=== PATIENT | male | born 1955 | race Caucasian/White ===

== ENCOUNTER 2016-08-12 12:35 | Emergency (ER) | payer BC, OTHER ==
--- NOTE | 2016-08-12 12:45 | ER Document Report ---
ED Medical Screen (RME) - General Stated Complaint: RIGHT LEG AND FOOT PAIN, SWELLING Mode of Arrival: Wheelchair Information source: Patient Notes: Patient presents complaining of right foot pain. Patient states that he hit his splint while at work, patient works at the [employer]. 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 A comprehensive ED assessment and evaluation of the patient, analysis of test results and completion of the medical decision making process will be conducted by additional ED providers. TRAVEL OUTSIDE OF THE [place] IN LAST 30 DAYS: No - Related Data Allergies/Adverse Reactions: No Known Allergies Allergy (Verified 08/12/16 12:41) Physical Exam - Extremities General lower extremity: Tender - Right foot
[2016-08-12] MEDS ORDERED: OXYCODONE-ACETAMINOPHEN 5-325 MG TABLET PO ONE (15:33)
[2016-08-12] MEDS ORDERED: HEPARIN SOD (PORCINE) 1,000 UNIT/ML 10 ML VIAL IV ONE (16:46)
[2016-08-12] MEDS ORDERED: HEPARIN SOD (PORCINE) 1,000 UNIT/ML 10 ML VIAL IV PRN (16:46)
[2016-08-12] MEDS ORDERED: HEPARIN SODIUM,PORCINE/D5W 250 ML IV PRN (16:46)
--- NOTE | 2016-08-12 16:46 | ER Document Report ---
ED General - General Chief Complaint: Foot Injury Stated Complaint: RIGHT LEG AND FOOT PAIN, SWELLING Mode of Arrival: Wheelchair Information source: Patient Notes: 61-year-old male presents with complaints of right foot pain and swelling. Patient states he kicked something about 5 days ago denies any other injuries, TRAVEL OUTSIDE OF THE [place] IN LAST 30 DAYS: No - HPI Onset: Last week Onset/Duration: Persistent Quality of pain: Achy Severity: Mild Pain Level: 1 Associated symptoms: Leg swelling, Other Exacerbated by: Walking Relieved by: Denies Similar symptoms previously: No Recently seen / treated by doctor: No - Related Data Allergies/Adverse Reactions: No Known Allergies Allergy (Verified 08/12/16 12:41) Past Medical History - General Information source: Patient - Social History Smoking Status: Never Smoker Cigarette use (# per day): No Chew tobacco use (# tins/day): No Smoking Education Provided: No Frequency of alcohol use: None Drug Abuse: None Family History: Reviewed & Not Pertinent Patient has suicidal ideation: No Patient has homicidal ideation: No Renal/ Medical History: Denies: Hx Peritoneal Dialysis Review of Systems - Review of Systems Notes: REVIEW OF SYSTEMS: CONSTITUTIONAL : Denies fever, chills, or sweats. Denies recent illness. EENT: Denies eye, ear, throat, or mouth pain or symptoms. Denies nasal or sinus congestion or discharge. Denies throat, tongue, or mouth swelling or difficulty swallowing. CARDIOVASCULAR: Denies chest pain. Denies palpitations or racing or irregular heart beat. Denies ankle edema. RESPIRATORY: Denies cough, cold, or chest congestion. Denies shortness of breath, difficulty breathing, or wheezing. GASTROINTESTINAL: Denies abdominal pain or distention. Denies nausea, vomiting , or diarrhea. Denies blood in vomitus, stools, or per rectum. Denies black, tarry stools. Denies constipation. GENITOURINARY: Denies difficulty urinating, painful urination, burning, frequency, blood in urine, or discharge. MUSCULOSKELETAL: Right foot pain SKIN: Denies rash, lesions or sores. HEMATOLOGIC : Denies easy bruising or bleeding. LYMPHATIC: Denies swollen, enlarged glands. NEUROLOGICAL: Denies confusion or altered mental status. Denies passing out or loss of consciousness. Denies dizziness or lightheadedness. Denies headache. Denies weakness or paralysis or loss of use of either side. Denies problems with gait or speech. Denies sensory loss, numbness, or tingling. Denies seizures. PSYCHIATRIC: Denies anxiety or stress. Denies depression, suicidal ideation, or homicidal ideation. ALL OTHER SYSTEMS REVIEWED AND NEGATIVE. Dictation was performed using [employer] voice recognition software PHYSICAL EXAMINATION: GENERAL: Well-appearing, well-nourished and in no acute distress. HEAD: Atraumatic, normocephalic. EYES: Pupils equal round and reactive to light, extraocular movements intact, sclera anicteric, conjunctiva are normal. ENT: Nares patent, oropharynx clear without exudates. Moist mucous membranes. NECK: Normal range of motion, supple without lymphadenopathy LUNGS: Breath sounds clear to auscultation bilaterally and equal. No wheezes rales or rhonchi. HEART: Regular rate and rhythm without murmurs ABDOMEN: Soft, nontender, nondistended abdomen. No guarding, no rebound. No masses appreciated. Musculoskeletal: Right foot edema NEUROLOGICAL: Cranial nerves grossly intact. Normal speech, normal gait. Normal sensory, motor exams PSYCH: Normal mood, normal affect. SKIN: Right foot is blue cyanotic cold pulseless to palpation and to mobile Doppler. streaking noted mid tib-fib Physical Exam - Vital signs Vitals: Temp Pulse Resp BP Pulse Ox 98.5 F 111 H 18 159/88 H 97 08/12/16 12:43 08/12/16 12:43 08/12/16 12:43 08/12/16 12:43 08/12/16 12:43 Course - Re-evaluation Re-evalutation: 08/12/16 16:46 I evaluated the patient in the E I noted that the patient's foot is cyanotic, x-ray was negative, my immediate concern was for an arterial occlusion no flow noted below the knee, [facility] [address] paged 08/12/16 17:07 08/12/16 17:34 Patient has been accepted by Dr. Feldman - Vital Signs Vital signs: Temp Pulse Resp BP Pulse Ox 98.5 F 111 H 16 166/90 H 98 08/12/16 12:43 08/12/16 12:43 08/12/16 17:26 08/12/16 17:26 08/12/16 17:26 - Diagnostic Test Radiology reviewed: Image reviewed, Reports reviewed Critical Care Note - Critical Care Note Total time excluding time spent on procedures (mins): 45 Comments: 45 minutes of critical care time spent in direct contact evaluating and reevaluating the patient, treating symptoms, reviewing labs and studies and speaking with family and consultants excluding any procedures Discharge - Discharge Clinical Impression: Arterial occlusion, right foot cyanosis, Right foot pain Condition: Serious Disposition: [facility]
[2016-08-12] MEDS ORDERED: MORPHINE SULFATE 10 MG/ML INJ IV ONE (17:35)
[2016-08-12 17:39] LABS: ABSOLUTE BASOPHILS # (AUTO) 0.1 10^3/uL (0.0-0.2); ABSOLUTE MONOCYTES (AUTO) 1.8 10^3/uL (0.1-1.4); BASOPHILS % (AUTO) 0.9 % (0-2); EOSINOPHILS % (AUTO) 0.2 % (0-6); HEMATOCRIT 40.2 % (37.9-51.0); HEMOGLOBIN 12.9 g/dL (13.5-17.0); HGB HCT DIFFERENCE -1.5; LYMPHOCYTES % (AUTO) 6.8 % (13-45); MEAN CORPUSCULAR HEMOGLOBIN 25.8 pg (27.0-33.4); MEAN CORPUSCULAR HGB CONC 32.2 g/dL (32.0-36.0); MEAN CORPUSCULAR VOLUME 80 fl (80-97); MONOCYTES % (AUTO) 11.8 % (3-13); RED BLOOD COUNT 5.02 10^6/uL (4.35-5.55); RED CELL DISTRIBUTION WIDTH 19.2 % (11.5-14.0); SEGMENTED NEUTROPHILS % (AUTO) 80.3 % (42-78)
[2016-08-12 17:46] LABS: PARTIAL THROMBOPLASTIN TIME 30.8 SEC (23.5-35.8)
[2016-08-12 17:47] VITALS: BP 173/78
[2016-08-12 17:54] LABS: ALANINE AMINOTRANSFERASE 77 U/L (21-72); ALBUMIN 3.8 g/dL (3.5-5.0); ALKALINE PHOSPHATASE 86 U/L (38-126); ANION GAP 15 (5-19); ASPARTATE AMINO TRANSFERASE 117 U/L (17-59); BILIRUBIN,TOTAL 1.2 mg/dL (0.2-1.3); BLOOD UREA NITROGEN 10 mg/dL (7-20); CALCIUM 9.6 mg/dL (8.4-10.2); CARBON DIOXIDE 25 mmol/L (22-30); CHLORIDE 93 mmol/L (98-107); CREATININE RESULT 0.87 mg/dL (0.52-1.25); GLUCOSE 106 mg/dL (75-110); POTASSIUM 3.7 mmol/L (3.6-5.0); SODIUM 133.2 mmol/L (137-145); TOTAL PROTEIN 7.8 g/dL (6.3-8.2)
--- NOTE | 2016-08-13 12:28 | XCELERA REPORT ---
[address] [address] Lower Extremity Arterial Evaluation Name: ROBERTA CRUZ Age: 61 yrs Gender: Male : 1955 Patient Status: Preadmit Patient Location: ER Study Date: 08/12/2016 03:51 PM Procedure: A color flow and duplex scan of the lower extremity arteries was performed on the right with velocity and waveform anaylsis. Reason For Study: cold extremities Ordering Physician: GABE PILLAI Performed By: Anahi Garces Measurements and Calculations Right Left TRUCK DRIVER'S OFFSIDER PSV 132.8 cm/sec Prox PFA PSV -65.6 cm/sec Prox SFA PSV 101.8 cm/sec Mid SFA PSV -109.7 cm/sec Dist SFA PSV -94.3 cm/sec Prox Pop A PSV 54.1 cm/sec Prox CATRINA PSV 51.3 cm/sec Mid CATRINA PSV 41.8 cm/sec Prox CHEMICAL LAB SUPERVISOR PSV 45.7 cm/sec Mid CHEMICAL LAB SUPERVISOR PSV 58.9 cm/sec Dist Gema A PSV 74.6 cm/sec Ivan Pedis PSV 23.6 124.9 cm/sec Right Side Arterial Evaluation Normal velocity, waveform and triphasic flow are present, from the Common Femoral artery down to the infrageniculate vessels, proximally, distally just trickle flow in the Anterior and Posterior Tibial arteries.. The ankle-brachial index was not done.. Occlusion is noted at the distal infrageniculate arteries . Left Side Arterial Evaluation Spot check shows normal signal at the Dorsalis Pedis. Critical Findings Discussed with Dr Garcia. Interpretation Summary Severe hemodynamic changes on the right, in a most unusual pattern. Very distally, which could be due to embolic phenomena. : GABE PILLAI [place]
== END 2016-08-12 18:24 | disposition short-term general hospital (02) ==
LOC: ER 12:35
DX: I74.9 Embolism and thrombosis of unspecified artery (principal); R23.0 Cyanosis; M79.671 Pain in right foot; M79.89 Other specified soft tissue disorders; W22.8XXA Striking against or struck by other objects, initial encounter
CPT/HCPCS: 99291; 96374; 96375; 36415; 82962; 85025; 85610; 85730; 80053; 93926 ×2; 73630; J1644; J2270

== ENCOUNTER 2016-08-27 13:52 | Emergency (ER) | payer OTHER ==
--- NOTE | 2016-08-27 14:28 | ER Document Report ---
ED Medical Screen (RME) - General Stated Complaint: CONFUSION,ANXIETY Mode of Arrival: Wheelchair Information source: Patient Notes: Patient had vascular foot surgery on 08/12/2016 and 08/23/16. Patient did follow up with his vascular surgeon on 08/22/2016. Patient's had episodes of confusion ever since his initial surgery. Pt does have a history of chronic alcoholism and family is worried about possible delirium tremens or complication from his recent surgery. Last etoh intake was late July. Patient has got up at home without family helping him and family are concerned that maybe he injured his right foot. Patient confused in triage, unable to state what month wherein, who the president is or the name of the person who brought him to the emergency department. RN able to get pulse with doppler in triage. hx: Patient with a history of producing too much iron I have greeted and performed a rapid initial assessment of this patient. A comprehensive ED assessment and evaluation of the patient, analysis of test results and completion of the medical decision making process will be conducted by additional ED providers. TRAVEL OUTSIDE OF THE [place] IN LAST 30 DAYS: No - Related Data Allergies/Adverse Reactions: No Known Allergies Allergy (Verified 08/12/16 12:41) Past Medical History Renal/ Medical History: Denies: Hx Peritoneal Dialysis Physical Exam - Vital signs Vitals: Temp Pulse Resp BP Pulse Ox 98.1 F 112 H 18 134/80 H 96 08/27/16 13:55 08/27/16 13:55 08/27/16 13:55 08/27/16 13:55 08/27/16 13:55 - Neurological [place] Coma Scale Eye Opening: Spontaneous Heather Coma Scale Verbal: Confused [place] Coma Scale Motor: Obeys Commands Heather Coma Scale Total: 14 Course - Re-evaluation Re-evalutation: 08/27/16 14:[address] Hernandez who recommends having CT of the head as well as an ammonia level. - Vital Signs Vital signs: Temp Pulse Resp BP Pulse Ox 98.1 F 112 H 18 134/80 H 96 08/27/16 13:55 08/27/16 13:55 08/27/16 13:55 08/27/16 13:55 08/27/16 13:55
[2016-08-27 16:16] LABS: ABSOLUTE BASOPHILS # (AUTO) 0.1 10^3/uL (0.0-0.2); ABSOLUTE EOSINOPHILS # (AUTO) 0.1 10^3/uL (0.0-0.6); ABSOLUTE LYMPHOCYTES (AUTO) 1.3 10^3/uL (0.5-4.7); ABSOLUTE MONOCYTES (AUTO) 1.4 10^3/uL (0.1-1.4); ABSOLUTE NEUT (AUTO) 10.8 10^3/uL (1.7-8.2); BASOPHILS % (AUTO) 0.5 % (0-2); EOSINOPHILS % (AUTO) 0.4 % (0-6); HEMATOCRIT 30.8 % (37.9-51.0); HEMOGLOBIN 9.9 g/dL (13.5-17.0); HGB HCT DIFFERENCE -1.1; LYMPHOCYTES % (AUTO) 9.6 % (13-45); MEAN CORPUSCULAR HEMOGLOBIN 25.4 pg (27.0-33.4); MEAN CORPUSCULAR HGB CONC 32.3 g/dL (32.0-36.0); MEAN CORPUSCULAR VOLUME 79 fl (80-97); RED BLOOD COUNT 3.92 10^6/uL (4.35-5.55); RED CELL DISTRIBUTION WIDTH 17.8 % (11.5-14.0); SEGMENTED NEUTROPHILS % (AUTO) 79.5 % (42-78); WHITE BLOOD COUNT 13.6 10^3/uL (4.0-10.5)
[2016-08-27] MEDS ORDERED: PIPERACILLIN/TAZOBACTAM 3.375 GM VIAL IV ONE (16:16)
[2016-08-27] MEDS ORDERED: VANCOMYCIN HCL INJ 1000 MG VIAL IV ONE (16:16)
[2016-08-27 16:35] LABS: PROTHROMBIN TIME 38.2 SEC (11.4-15.4)
[2016-08-27 16:36] LABS: PARTIAL THROMBOPLASTIN TIME 55.3 SEC (23.5-35.8)
[2016-08-27 16:42] LABS: ALANINE AMINOTRANSFERASE 35 U/L (21-72); ALBUMIN 3.2 g/dL (3.5-5.0); ALKALINE PHOSPHATASE 92 U/L (38-126); ANION GAP 11 (5-19); ASPARTATE AMINO TRANSFERASE 38 U/L (17-59); BILIRUBIN,TOTAL 0.5 mg/dL (0.2-1.3); BLOOD UREA NITROGEN 9 mg/dL (7-20); CALCIUM 9.4 mg/dL (8.4-10.2); CARBON DIOXIDE 28 mmol/L (22-30); CHLORIDE 96 mmol/L (98-107); CREATINE KINASE 171 U/L (55-170); CREATININE RESULT 0.91 mg/dL (0.52-1.25); GLUCOSE 106 mg/dL (75-110); MAGNESIUM 2.3 mg/dL (1.6-2.3); POTASSIUM 4.1 mmol/L (3.6-5.0); SODIUM 135.2 mmol/L (137-145); TOTAL PROTEIN 7.3 g/dL (6.3-8.2)
[2016-08-27 16:43] LABS: ALCOHOL < 10 mg/dL (NONE DETECTED)
--- NOTE | 2016-08-27 16:49 | ER Document Report ---
ED General - General Chief Complaint: Post Surgical Pain Stated Complaint: CONFUSION,ANXIETY Time seen by provider: 16:20 Mode of Arrival: Wheelchair Information source: Patient, Relative Notes: 61-year-old male status post 2 vascular procedures to his right lower extremity by Dr. GABRIEL at [facility] August 12 and . Patient presents now markedly confused and cannot provide useful history. Patient's [id number]'s with the patient and has been accompanying him to Dr. paz and has seen him in the hospital and provides all history. She reports that he presented to this facility on the with a complaint of right foot pain was found to have after conclusion transferred to [facility] and underwent the above procedures. She reports that after the procedures they did not find any peripheral pulses and he was discharged on the and expectation that he would require an amputation. He was seen in follow-up with Dr. Feldman's office on the at which point he was found to have good pulses and he now has further follow-up arranged for early September. Br-wuyrhy-os-law reports that the patient was discharged on xarelto and has been compliant with that at 15 mg twice a day. She reports the patient has a history of heavy alcohol use and at times becomes confused with heavy drinking but she is certain that he is had no alcohol use since his surgery. She reports that while hospitalized at [facility] he became very confused talking out of his head and having difficulty cooperating with his care and she reports that that has not changed since discharge. She reports that he was staying with his brother at discharge and he was not receiving appropriate care or dressings for his right lower extremity she believes she was walking on it getting dressing dirty. She reports that today she took charge of the patient and noticed that to his surgical wounds on his foot or open and draining which are new and that he has worsening discoloration to the sole of the foot and the toes. She has not noted any fever, cough, shortness breath, or vomiting and says it's metal status has not had any improvement or worsening since his discharge. She reports that she did follow-up with his primary care physician Dr. Blanton [facility] today for his confusion and they were instructed to come to this facility for evaluation of his foot. Physical Exam: General: Alert, appears well. Pleasantly confused HEENT: Normocephalic. Atraumatic. PERRLA. Extraocular movements intact. Oropharynx clear. Neck: Supple. Non-tender. Respiratory: No respiratory distress. Clear and equal breath sounds bilaterally. Cardiovascular: Regular rate and rhythm. Abdominal: Normal Inspection. Soft, non-tender. No distension. Normal Bowel Sounds. Back: Non-tender. No deformity or step off. Both upper extremities warm with 2+ pulses. Remedy S2 posterior suspect is posterior tibial pulses and purplish discoloration over the distal phalanx of the left third toe but it is not cold and there is brisk capillary refill to the tip. The right lower extremity has a healing incision just below the knee medially with an intact eschar proximally. There are open dehiscing wounds anteriorly and medially to the ankle on the right with what appear to be all 5 toes bed and purplish discoloration to the sole of the foot distally. There is pale discoloration just proximal to the areas of purplish discoloration with some superficial sloughing of skin. I do not palpate dorsalis posterior tibial pulses. The entire purplish area of the foot is cold Neurological: Cranial nerves II-XII grossly intact bilaterally. Strength 5/5 throughout. Sensation intact to light touch. Normal cognition. AAOx4. Normal speech. Psychological: Normal affect. Normal Mood. Skin: Warm. Dry. Normal color. TRAVEL OUTSIDE OF THE [place] IN LAST 30 DAYS: No - Related Data Allergies/Adverse Reactions: No Known Allergies Allergy (Verified 08/27/16 14:33) Past Medical History - General Information source: Patient Cannot obtain history due to: Altered mental status - Social History Smoking Status: Unknown if Ever Smoked Frequency of alcohol use: Heavy Family History: Other - Unable to obtain due to altered mental status Patient has suicidal ideation: No Patient has homicidal ideation: No - Past Medical History Cardiac Medical History: Reports: Hx Peripheral Vascular Disease Renal/ Medical History: Denies: Hx Peritoneal Dialysis Review of Systems - Review of Systems -: Yes ROS unobtainable due to patient's medical condition Physical Exam - Vital signs Vitals: Temp Pulse Resp BP Pulse Ox 98.1 F 112 H 18 134/80 H 96 08/27/16 13:55 08/27/16 13:55 08/27/16 13:55 08/27/16 13:55 08/27/16 13:55 Course - Re-evaluation Re-evalutation: 08/27/16 18:14 Arterial Doppler right lower extremity showed monophasic flow in his Simeon pedis on the right. He had good flow on the left. The patient has dehiscence to both of his and surgical incisions with some evidence for infection. I discussed the case with Dr. Vega clinical education assistant for internal medicine at [facility] she has accepted the patient in transfer there with plans for vascular surgery consultation as well. Patient's altered mental status is according to his nurses medical assistants phlebotomists stable over the past 2 weeks. He is hemodynamically stable with no respiratory distress and no evidence for alcohol withdrawal alcohol intoxication or hepatic encephalopathy. 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 He has no findings consistent with meningitis or encephalitis. He is stable for transport. I will continue him on his outpatient Xarelto - Vital Signs Vital signs: Temp Pulse Resp BP Pulse Ox 98.1 F 112 H 18 134/80 H 96 08/27/16 13:55 08/27/16 13:55 08/27/16 13:55 08/27/16 13:55 08/27/16 13:55 - Laboratory Result Diagrams: 08/27/16 16:00 08/27/16 16:00 Laboratory results interpreted by me: 08/27/16 08/27/16 08/27/16 16:00 16:00 16:00 WBC 13.6 H RBC 3.92 L Hgb 9.9 L Hct 30.8 L MCV 79 L MCH 25.4 L RDW 17.8 H Plt Count 714 H Seg Neutrophils % 79.5 H Lymphocytes % 9.6 L Absolute Neutrophils 10.8 H PT 38.2 H APTT 55.3 H Sodium 135.2 L Chloride 96 L Ammonia Creatine Kinase 171 H Albumin 3.2 L 08/27/16 16:00 WBC RBC Hgb Hct MCV MCH RDW Plt Count Seg Neutrophils % Lymphocytes % Absolute Neutrophils PT APTT Sodium Chloride Ammonia < 8.7 L Creatine Kinase Albumin - Diagnostic Test Radiology reviewed: Image reviewed, Reports reviewed - EKG Interpretation by Me Additional EKG results interpreted by me: 08/27/16 16:50 EKG reviewed by myself shows sinus tachycardia 106 no acute changes Discharge - Discharge Clinical Impression: Cellulitis Qualifiers: Site of cellulitis: extremity Site of cellulitis of extremity: lower extremity Laterality: right Qualified Code(s): L03.115 - Cellulitis of right lower limb Postoperative infection Qualifiers: Encounter type: initial encounter Qualified Code(s): T81.4XXA - Infection following a procedure, initial encounter Condition: Fair Disposition: [facility]
[2016-08-27 16:53] LABS: CREATINE KINASE MB 0.55 ng/mL (<4.55); TROPONIN I < 0.012 ng/mL
[2016-08-27] MEDS ORDERED: RINGERS SOLUTION,LACTATED 1,000 ML IV ONE (18:19)
[2016-08-27] MEDS ORDERED: RIVAROXABAN 15 MG TABLET PO SCH (18:30)
[2016-08-27 20:07] VITALS: BP 142/90
--- NOTE | 2016-08-27 22:03 | EKG REPORT ---
SEVERITY:- ABNORMAL ECG - SINUS TACHYCARDIA NONSPECIFIC T ABNORMALITIES, INFERIOR LEADS : Confirmed by: Chelsi Ramires MD 27-Aug-2016 22:03:05
--- NOTE | 2016-08-28 09:53 | XCELERA REPORT ---
[address] [address] Lower Extremity Arterial Evaluation Name: ROBERTA CRUZ Age: 61 yrs Gender: Male : 1955 Patient Status: Preadmit Patient Location: ER Study Date: 08/27/2016 04:39 PM Procedure: A color flow and duplex scan of the lower extremity arteries was performed on the right with velocity and waveform anaylsis. Reason For Study: acute arterial occlusion RLE Ordering Physician: MICHAEL PRIDE Performed By: Frank Ayala Measurements and Calculations Right Left Dist SFA PSV -80.0 cm/sec Prox Pop A PSV 71.1 cm/sec Dist CATRINA PSV -33.9 cm/sec Dist PNEUMATIC TUBE FITTER PSV -29.6 cm/sec Dist Gema A PSV -52.7 cm/sec Ivan Pedis PSV -11.8 108.1 cm/sec Right Side Arterial Evaluation Normal velocity, waveform and triphasic flow are present, from the Common Femoral artery to the Femoral artery. Biphasic in the Popliteal. Monophasic in the infrageniculate vessels, with reduced velocities. Trickle flow at the Dorsalis Pedis artery. The ankle-brachial index was not done. 20-49 % stenosis is noted at the Femoral artery. With sequential changes. Left Side Arterial Evaluation Spot study shows a triphasic, normal Dorsalis Pedis. Critical Findings Discussed with Dr Pride, in light of recent arterial intervention in this patient. Transfer to be considered. Interpretation Summary Severe hemodynamically significant lesions in the right lower extremity only, on duplex imaging, at rest. : MICHAEL PRIDE > Paul Snow
== END 2016-08-27 20:30 | disposition short-term general hospital (02) ==
LOC: ER 13:52
DX: T81.4XXA Infection following a procedure, initial encounter (principal); L03.115 Cellulitis of right lower limb; Y83.8 Other surgical procedures as the cause of abnormal reaction of the patient, or of later complication, without mention of misadventure at the time of the procedure; R41.0 Disorientation, unspecified; I73.9 Peripheral vascular disease, unspecified; R00.0 Tachycardia, unspecified; Z79.02 Long term (current) use of antithrombotics/antiplatelets
CPT/HCPCS: 93005; 36415; 87040; 82553; 80307; 82140; 82607; 82550; 83605; 83735; 85025; 85610; 85730; 87077; 80053; 84484; 93926 ×2; 71020; 70450; 93010; J3370; J2543; 96365; 96375; 99285